=== PATIENT | male | born 1980 | race Hispanic/Latino ===

== ENCOUNTER 2025-01-05 07:52 | Emergency (ER) | payer SELFPAY ==
[~2025-01-05] VITALS: Ht 172.7 cm; Wt 123.4 kg
[2025-01-05 08:00] VITALS: TEMP 98.1
[2025-01-05] MEDS ORDERED: CYCLOBENZAPRINE10 MG PO (08:40)
[2025-01-05] MEDS ORDERED: NAPROXEN250 MG PO (08:40)
[2025-01-05] MEDS: DEXAMETHASONE 4 MG TAB PO STA (08:52)
[2025-01-05] MEDS: ACETAMINOPHEN 325 MG TAB PO ONE (08:53)
[2025-01-05] MEDS: KETOROLAC TROMETHAMINE 30 MG/ML VIAL IM STA (08:54)
[2025-01-05] MEDS: LIDOCAINE 4% PATCH TP STA (08:54)
[2025-01-05 09:54] VITALS: PULSE 54; RESP 16; O2SAT 99
== END 2025-01-05 10:35 | disposition home or self-care (01) ==
LOC: ER 07:57
DX: M54.50 Low back pain, unspecified (principal); X50.0XXA Overexertion from strenuous movement or load, initial encounter; Y92.89 Other specified places as the place of occurrence of the external cause; E11.9 Type 2 diabetes mellitus without complications
CPT/HCPCS: 72100; 99283; J1885; J8540